=== PATIENT | female | born 2000 | race Caucasian/White ===

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

== ENCOUNTER 2021-06-29 10:15 | Emergency (ER) | payer SELFPAY ==
[2021-06-29 10:23] VITALS: BP 118/70; PULSE 71; RESP 16; TEMP 37; O2SAT 100
--- NOTE | 2021-06-29 10:43 | ED.GENADUL_ITS ---
Discharge Plan Disposition Patient Disposition: HOME Condition: Improving Discharge Details Clinical Impression: Acute viral syndrome Primary Care Provider: Harper Acosta ED Provider: Zeeshan Haider Home Meds and New Rx's Prescriptions: New prednisone 50 mg tablet 50 mg PO DAILY 5 Days Qty: 5 0RF Continued melatonin 5 mg tablet 5 mg PO DAILY Qty: 30 0RF Rx Instructions: Take 1 tablet 30 minutes before bedtime. albuterol sulfate [ProAir HFA] 8.5 GM HFA aerosol inhaler 2 puff Inhalation Q4H PRN Qty: 2 1RF Rx Instructions: use with spacer, 2 puffs every 4hr as needed (DME) inhalational spacing device [Space Chamber Plus] 1 EACH spacer 1 ea Miscellaneous Q4H PRN Qty: 1 0RF Rx Instructions: use with inhaler as directed Nexplanon 68 MG implant 68 mg SQ ONCE Qty: 1 0RF Discharge Instructions Instructions: Viral Syndrome (ED) Additional Instructions: Small, frequent sips of fluids to maintain hydration. Tylenol and/or ibuprofen as needed for aches, pains, fever. Take prednisone as prescribed until finished. May use the provided albuterol if needed for wheezing or persistent cough. Return to the ER for acute concerns Stand Alone Forms: PENDING COVID-19 TESTING, Work Release Medical Decision Making 20-year-old female with a history of reactive airway disease presents with 3 days of cough, congestion, body ache, nausea, malaise. Her roommate is positive for COVID-19. Patient has been immunized x2 but no boosters. Patient is afebrile, well-appearing, do not appreciate wheezing on exam. I do feel she would benefit from a brief burst of steroids and I will offer her a albuterol inhaler for use if she develops persistent cough or wheeze at home. We will also arrange for her to reestablish primary care in this area. HPI General Mode of arrival: ambulatory . Date/Time Provider Initiated Documentation: 06/29/21 10:28 . Limitations to Documentation: no limitations . Information obtained by: patient . History of Present Illness 20 year old F presents to the emergency department with the chief complaint of Sore throat, body ache, dry cough, Quality is described as dull, and is localized to the chest. Patient reports no radiation. Patient started experiencing this day(s) and it has been constant. improves with No relieving factors improve symptom(s), No exacerbating factors reported . Patient notes cough and fever/chills; denies confusion, chest pain and syncope. Patient did receive the following treatments prior to arrival, none Related Data Home Medications Medication Instructions Recorded Confirmed albuterol sulfate 90 mcg/actuation 2 puff INHALATION Q4H PRN #2 02/16/16 06/29/21 aerosol inhaler (ProAir HFA) inhaler inhalational spacing device (Space #1 02/16/16 12/06/17 Chamber Plus) etonogestrel 68 mg subdermal 68 mg SQ ONCE #1 implant 12/26/16 06/29/21 implant (Nexplanon) melatonin 5 mg tablet 5 mg PO DAILY #30 tab 12/07/17 06/29/21 prednisone 50 mg tablet 50 mg PO DAILY 5 Days #5 tab 06/29/21 Previous Rx's Medication Instructions Recorded melatonin 5 mg tablet 5 mg PO DAILY #30 tab 12/07/17 prednisone 50 mg tablet 50 mg PO DAILY 5 Days #5 tab 06/29/21 Allergies Allergy/AdvReac Type Severity Reaction Status Date / Time Sulfa (Sulfonamide Allergy Unverified 06/29/21 10:27 Antibiotics) General Stated Complaint: RespSymp ROHAN: 4 Review of Systems Narrative: Feels mild shortness of breath, not currently using an active inhaler. Otherwise healthy. Works in the [email or web address]. 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/13) self injury/cutting Depression (Chronic 07/19/13) Contraception (Chronic 10/17/14) Childhood overweight, BMI 85-94.9 percentile (Acute 07/05/13) Adjustment disorder with depressed mood (Chronic 07/05/13) Medical History Depressed mood Gastroenteritis requried hospitalization Headache disorder PREMEN[employer]AL MIGRAIN[employer] Family History Mother Substance abuse Anxiety Father Anxiety Other Substance abuse Mat uncles, MGM Anxiety sister Grandparent Personal history of malignant neoplasm Social History Smoking/Tobacco Use Status: Current-Occasional Tobacco Type: e-cigarettes Smoking risk assessment performed?: Yes Drug use: Daily Substance use type: marijuana Do you feel safe in your relationship?: Yes Exam Narrative Exam Narrative: GEN: awake, alert, oriented 3. Pleasant, well groomed, interactive. HEAD: Normocephalic, atraumatic ENT: Mucous membranes dry, oropharynx unremarkable, External ear exam unremarkable EYES: PERRL, EOMI NECK: Full ROM, no ORI, no menigismus CHEST/RESP: Nontender, clear to auscultation bilateral, no wheeze/rhonchi/rales not CARDIOVASCULAR: RRR, no murmur, rub nina. 2+ Rad pulse bilateral ABDOMEN: Soft, nontender, no mass. +Bowel sounds EXT: Full ROM, no edema, no rash Neuro: Grossly normal neurologic exam, conversant, interactive. Psych: Speech fluent, thoughts congruent, affect normal Course Vital Signs Vital signs: Vital Signs Temperature 37.0 C 06/29/21 10:23 Pulse 71 06/29/21 10:23 Respiratory Rate 16 06/29/21 10:23 Blood Pressure 118/70 06/29/21 10:23 Pulse Oximetry 100 06/29/21 10:23 Temperature 37.0 C 06/29/21 10:23 Temperature Source Temporal Artery Scan 06/29/21 10:23 Pulse 71 06/29/21 10:23 Respiratory Rate 16 06/29/21 10:23 Respiratory Effort 06/29/21 10:27 Respiratory Depth Normal 06/29/21 10:27 Blood Pressure 118/70 06/29/21 10:23 Blood Pressure Position Sitting 06/29/21 10:23 Pulse Oximetry 100 06/29/21 10:23 Oxygen Delivery Method Room Air 06/29/21 10:23 Oxygen Flow Rate 0 06/29/21 10:23 Pain Level 5 06/29/21 10:23
--- NOTE | 2021-06-29 10:44 | NUR.NOTE ---
Nursing Note: Referral given to Care Management for follow up after COVID, establish care, needs PCP; within 2 weeks. Radha Luis
[2021-06-29] MEDS: predniSONE 40 MG, predniSONE 10 MG 50 MG PO (10:50)
[2021-06-29] MEDS: Inhaler, Assist Device 1 EACH MC (10:50)
[2021-06-29] MEDS: Albuterol HFA 8 GM 60 PUFF INH IH (10:50)
[2021-06-30 16:11] LABS: COVID-19 RT-PCR UVMMC Result Positive (Negative)
== END 2021-06-29 10:56 | disposition home or self-care (01) ==
PROVIDERS: Emergency Provider Emergency Medicine; PCP Student in an Organized Health Care Education/Training Program
DX: U07.1 COVID-19 (principal); R11.0 Nausea; R53.81 Other malaise
CPT/HCPCS: 87880; 99283; U0003; 87081; J7512